=== PATIENT | female | born 1950 | race Hispanic/Latino ===

== ENCOUNTER 2018-08-07 13:45 | Emergency (ER) | payer MEDICARE, SELFPAY ==
--- NOTE | 2018-08-07 14:34 | CT ---
Exam: Head CT without contrast HISTORY: Pain. Injury. Hit forehead on wall 3 days ago. Post traumatic headache. COMPARISON: none FINDINGS: Hemorrhage: No intraparenchymal hemorrhage or extra-axial hematoma. Brain parenchyma: Cortical brantley-white matter differentiation is preserved. No mass effect or midline shift. Basilar cisterns are patent Ventricular system: Ventricles and sulci are patent and symmetric. Calvarium: Intact. Hyperostosis frontalis interna is noted. Sinuses and mastoid air cells: Adequate aeration. IMPRESSION: No intracranial post traumatic sequelae
--- NOTE | 2018-08-07 14:40 | CT ---
Exam: CT cervical spine without contrast HISTORY: Trauma. Pain. COMPARISON: None FINDINGS: No craniocervical dissociation. Appropriate alignment of the lateral masses of C1 and C2. Intact odon toid process Appropriate alignment of the facets. Mild straightening of normal cervical lordosis may be due to patient position, muscle spasm or cervic al collar. Soft tissue neck structures: No mass, lymphadenopathy or hematoma. No prevertebral soft tissue swelli ng. Upper mediastinum and lung apices: Unremarkable Central spinal canal: Neural foramina and central spinal canal are patent. Evaluation is limited by t echnique Vertebral bodies: Cervical spine vertebral body height is maintained. No fracture. IMPRESSION: 1. No cervical spine fracture. 2. Straightening of normal cervical lordosis as detailed above. MRI if there is concern for ligamento us injury.
== END 2018-08-07 15:00 | disposition home or self-care (01) ==
LOC: SCSER 13:45
DX: S01.81XA Laceration without foreign body of other part of head, initial encounter (principal); G44.309 Post-traumatic headache, unspecified, not intractable; F07.81 Postconcussional syndrome; E78.5 Hyperlipidemia, unspecified; E11.9 Type 2 diabetes mellitus without complications; I10 Essential (primary) hypertension; F41.9 Anxiety disorder, unspecified; F32.9 Major depressive disorder, single episode, unspecified; Z79.899 Other long term (current) drug therapy; W22.8XXA Striking against or struck by other objects, initial encounter
CPT/HCPCS: 70450; 72125